=== PATIENT | male | born 1985 | race Caucasian/White ===

== ENCOUNTER 2017-08-17 11:42 | Emergency (ER) | payer OTHER ==
[~2017-08-17] VITALS: Ht 180.3 cm; Wt 78.5 kg
== END 2017-08-17 12:56 | disposition home or self-care (01) ==
LOC: ER 11:42
DX: J06.9 Acute upper respiratory infection, unspecified (principal); Z88.0 Allergy status to penicillin; Z88.2 Allergy status to sulfonamides